=== PATIENT | male | born 1985 | race Caucasian/White ===

== ENCOUNTER 2021-08-20 07:50 | Emergency (ER) | payer BC, OTHER, SELFPAY ==
[2021-08-20 08:12] VITALS: BP 138/78; PULSE 63; RESP 18; TEMP 36.9; O2SAT 97
--- NOTE | 2021-08-20 08:18 | ECG_ITS ---
[facility] Test Date: 2021-08-20 Pat Name: Tahir Celaya Department: Room: Gender: Male Esl Tutor: : 1985 Requested By: Hemanth Richardson Order Number: [id number] Allie MD: Krystyna Gonzalez M.D. 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 [id number]
--- NOTE | 2021-08-20 08:18 | W.ED.COVID ---
Documented by User: SERG Quick 08/20/21 14:49 HPI - COVID General: Chief Complaint: COVID symptoms Stated Complaint: COVID + MUSCLE ACHES CHEST TIGHTNESS Time Seen by Provider: 08/20/21 08:12 Triage information: No fever, cough or shortness of breath. No known COVID + exposure last 14 days History of Present Illness: HPI Narrative: Patient presents today with Covid symptoms that started this morning. Patient is unvaccinated and is having some chest pressure when taken deep inspiration body aches fever chills, headache. Denies sore throat. Denies shortness of breath. MD complaint: known COVID positive Prior covid testing: yes, results known Prior testing date: 08/20/21 COVID 19 common symptoms: positive fever(s), chills, non-productive cough, body aches, headache(s), loss of sense of smell and/or taste and chest tightness; negative throat pain, nasal congestion, nausea or vomiting COVID 19 other sytmptoms: positive chest pressure; negative chest pain Onset (ago): hour(s) Severity: mild Treatment prior to arrival: none COVID Results: No Data to Display Review of Systems Const: Reports: fever(s), chills and body aches Eyes: Denies: change in vision or blurry vision ENMT: Denies: throat pain or nasal congestion Card: Denies: chest pain or dyspnea on exertion Resp: Reports: non-productive cough GI: Denies: abdominal pain, nausea or vomiting : Denies: difficulty urinating Musc: Denies: extremity pain Skin/Breast: Denies: rash Neuro: Reports: headache(s) Psych: Denies: anxiety or depression Mauricio/Lymph: Denies: easy bruising Physical Exam Const: COMMON NORMALS: no acute distress, average body habitus and patient oriented x3 HENMT: COMMON NORMALS: normocephalic HEAD & SCALP: normal to inspection and normocephalic FACE & SINUS: normal facial exam Eye: COMMON NORMALS: conjunctivae normal GENERAL EYE: appearance normal, both eyes and all related structures CONJUNCTIVA: Yes conjunctivae normal Neck/C-Spine: COMMON NORMALS: no JVD Chest: COMMONS NORMALS: normal inspection of the chest Resp: COMMON NORMALS: normal respiratory effort and clear to auscultation bilaterally AUSCULTATION: clear to auscultation bilaterally Cardio: COMMON NORMALS: no JVD, regular rate and regular rhythm RATE: regular rate RHYTHM: regular rhythm GI: COMMON NORMALS: Normal to inspection, nondistended, normoactive bowel sounds present Extremity: COMMON NORMALS: normal to inspection and full ROM Neuro: COMMON NORMALS: patient oriented x3 Course Vital Signs: Vital signs: Vital Signs Temperature 98.4 F 08/20/21 08:12 Pulse Rate 63 08/20/21 08:12 Respiratory Rate 18 08/20/21 08:12 Blood Pressure 138/78 08/20/21 08:12 Pulse Oximetry 95 08/20/21 09:35 MDM - COVID MDM Narrative: Medical decision making narrative: EKG reviewed by Dr. Cobian. Patient is in no distress. Tested positive for Covid this morning and his symptoms started this morning. Patient has no chest pain does have tightness with deep inspiration. Patient has no shortness of breath. COVID Results: No Data to Display Discharge Plan Discharge Patient Disposition: Home Clinical Impression: COVID-19 Condition: Stable Prescriptions: New Decadron 6 mg tablet 6 mg PO DAILY Qty: 7 RF: 0 Discharge Orders: Discharge ED (Routine); Ordered 08/20/21 Ordered By: Hemanth Richardson Discharge Diet: Usual diet Discharge Activity: Increase activity as tolerated Patient Instructions: COVID-19 (Coronavirus Disease 2019) (ED) Activity Restrictions/Additional Instructions: Follow-up with medical provider as directed. Take medications as prescribed. Return to the ER or your medical provider if condition worsens. Please read and understand discharge instructions. If any questions ask please. Contact [facility] Covid hotline if you want to schedule yourself for monoclonal antibody infusion. Coding Level of Care Code ED Disability Attorney for Chg Fwd Exam Comprehensive Documented by User: Jose Juan Singh DO 08/22/21 07:50 HPI - COVID General: Chief Complaint: COVID symptoms Stated Complaint: COVID + MUSCLE ACHES CHEST TIGHTNESS Time Seen by Provider: 08/20/21 08:12 COVID Results: No Data to Display Course Vital Signs: Vital signs: Vital Signs Temperature 98.4 F 08/20/21 08:12 Pulse Rate 63 08/20/21 08:12 Respiratory Rate 18 08/20/21 08:12 Blood Pressure 138/78 08/20/21 08:12 Pulse Oximetry 95 08/20/21 09:35 MDM - COVID MDM Narrative: Medical decision making narrative: Chart reviewed and patient discussed with midlevel. Agree with assessment and plan. COVID Results: No Data to Display Discharge Plan Discharge Patient Disposition: Home Clinical Impression: COVID-19 Condition: Stable Prescriptions: New Decadron 6 mg tablet 6 mg PO DAILY Qty: 7 RF: 0 Discharge Orders: Discharge ED (Routine); Ordered 08/20/21 Ordered By: Hemanth Richardson Discharge Diet: Usual diet Discharge Activity: Increase activity as tolerated Patient Instructions: COVID-19 (Coronavirus Disease 2019) (ED) Activity Restrictions/Additional Instructions: Follow-up with medical provider as directed. Take medications as prescribed. Return to the ER or your medical provider if condition worsens. Please read and understand discharge instructions. If any questions ask please. Contact [employer] Covid hotline if you want to schedule yourself for monoclonal antibody infusion. Coding Level of Care Code ED Disability Attorney for Pushpa Fwd Exam Comprehensive
[2021-08-20 09:35] VITALS: O2SAT 95
== END 2021-08-20 08:40 | disposition home or self-care (01) ==
PROVIDERS: Emergency Provider Nurse Practitioner Family
DX: U07.1 COVID-19 (principal)
CPT/HCPCS: 93005; 99282

== ENCOUNTER → 2023-10-04 11:46 | Outpatient (BNVA) | payer OTHER, SELFPAY | PROVIDERS: Visit Provider Emergency Medicine | DX: J02.9 Acute pharyngitis, unspecified (principal); Z20.828 Contact with and (suspected) exposure to other viral communicable diseases | CPT/HCPCS: 87071; 87400; 87880 ==

== ENCOUNTER 2025-01-30 07:42 | Outpatient (CLI) | payer OTHER, SELFPAY ==
--- NOTE | 2025-01-30 07:57 | XRR_ITS ---
PROCEDURE INFORMATION: Exam: XR Left Ribs with PA Chest Exam date and time: 01/30/2025 8:15 AM Age: 39 years old Clinical indication: Injury or trauma; Fall; Rib area, left side; Blunt trauma; Additional info: Left shoulder and upper to mid left rib pain, patient fell TECHNIQUE: Imaging protocol: Radiologic exam of the left ribs with PA chest. Views: 3 views COMPARISON: CR XR shoulder LT min 2V* [id number] 01/30/2025 8:15 AM FINDINGS: Lungs: No focal infiltrates seen of the lungs. Pleural spaces: No large or obvious pneumothorax nor pleural effusion seen. Heart/Mediastinum: Heart size appears within normal. No obvious pneumomediastinum seen. Diaphragm: Mild elevation right hemidiaphragm. Bones/joints: No displaced fracture seen of visualized portions of left ribs. Soft tissues: No subcutaneous emphysema seen along left chest wall. Intraperitoneal space: No free intraperitoneal air seen beneath the diaphragm. XR/XR ribs LT mn 3V w CXR1V [id number] IMPRESSION: No displaced fracture seen of visualized portions of left ribs.
--- NOTE | 2025-01-30 07:57 | XRR_ITS ---
PROCEDURE INFORMATION: Exam: XR Left Shoulder Exam date and time: 01/30/2025 8:15 AM Age: 39 years old Clinical indication: Injury or trauma; Fall; Blunt trauma (contusions or hematomas); Shoulder; Left; Additional info: Left shoulder and upper to mid left rib pain x TECHNIQUE: Imaging protocol: Radiologic exam of the left shoulder. Views: 2 or more views. COMPARISON: CR XR ribs LT mn 3V w CXR1V [id number] 01/30/2025 8:15 AM FINDINGS: Bones/joints: No displaced fracture nor dislocation seen. Soft tissues: No metallic foreign body seen. XR/XR shoulder LT min 2V* [id number] IMPRESSION: No displaced fracture seen.
== END 2025-01-30 07:43 | disposition home or self-care (01) ==
PROVIDERS: Visit Provider Family Medicine Adult Medicine
DX: S46.912A Strain of unspecified muscle, fascia and tendon at shoulder and upper arm level, left arm, initial encounter (principal); V89.2XXA Person injured in unspecified motor-vehicle accident, traffic, initial encounter; R07.81 Pleurodynia
CPT/HCPCS: 71101; 73030

== ENCOUNTER 2025-05-01 07:52 | Emergency (ER) | payer OTHER, SELFPAY ==
[2025-05-01 07:57] VITALS: BP 155/79; PULSE 70; RESP 24; TEMP 36.6; O2SAT 99; BMI 27.0
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
[2025-05-01 08:22] LABS: Hematocrit 47.8 % (37-53); Hemoglobin 16.40 g/dL (11.27-16.99); Mean Corpuscular HGB Conc 34.3 g/dL (30-55); Mean Corpuscular Hemoglobin 31.5 pg (27-33); Mean Corpuscular Volume 91.7 fl (82-101); Nucleated Red Blood Cells % 0 %; Platelet Count 263 10^3/cmm (157-399); Red Blood Count 5.21 10^6/uL (3.85-5.65); White Blood Count 7.89 10^3/uL (3.29-11.43)
[2025-05-01 08:31] LABS: Alanine Aminotransferase 24 U/L (0-41); Albumin Level 4.6 g/dL (3.5-5.2); Alkaline Phosphatase 87 U/L (40-130); Anion Gap 21.3 (5-19); Aspartate Amino Transferase 27 U/L (0-40); Blood Urea Nitrogen 12 mg/dL (6-20); Calcium 9.7 mg/dL (8.5-10.5); Carbon Dioxide 21 mmol/L (22-29); Chloride 103 mmol/L (98-107); Creatinine Clr Calc Pharmacy 94.4474; Globulin 2.8 g/dL (1.3-4.6); Glucose 136 mg/dL (65-115); Lipase 29 U/L (13-60); Osmolality Calculated 294 mOsm/kg (285-295); Potassium 4.3 mmol/L (3.5-5.1); Sodium 141 mmol/L (136-145); Total Protein 7.4 g/dL (6.6-8.7)
--- NOTE | 2025-05-01 09:01 | CT_ITS ---
WS: [id number] CT ABDOMEN AND PELVIS NONCONTRAST HISTORY: flank pain TECHNIQUE: Imaging performed through the abdomen and pelvis. Coronal and sagittal reformats are submitted. All CT scans at [facility] use at least one of these dose optimization techniques: automated exposure control; mA and/or kV adjustment per patient size (includes targeted exams where dose is matched to clinical indication); or iterative reconstruction. DLP: 526.41 mGy.cm COMPARISON: None available. Lower thorax: Motion artifact at the lung bases. There is significant breathing motion artifact. Liver: Normal size liver. No mass or bile duct dilatation. Gallbladder: Normal gallbladder. No pericholecystic fluid or cholelithiasis. No gallbladder wall thickening. Pancreas: Normal size and attenuation. Normal pancreatic duct. No pancreatitis or mass. Spleen: Normal. Adrenal glands: Normal. No mass. Right kidney: Normal size kidney with a nonobstructing 3 mm calcification lower pole. 4 mm calcification in the distal RIGHT ureter. Majority of the ureter is normal caliber with minimal dilatation distally. Left kidney: Normal size kidney. Nonobstructing 2 mm calcification in the lower pole. No renal obstruction or perinephric stranding. Small caliber ureter. Aorta: Mild atherosclerosis abdominal aorta with no aneurysm. No free fluid, intraperitoneal air or significant lymphadenopathy. GI tract: No obstruction. Retrocecal appendix. Normal appendix. No colitis. Abdominal wall: Negative. No hernia. Pelvis: No free fluid. Minimally distended urinary bladder. Osseous structures: Sclerotic foci LEFT acetabulum and the LEFT ischium. Consistent with bone islands. CT/CT kidney stone [id number] IMPRESSION: 1. Minimally obstructing distal 4 mm RIGHT ureteral calcification. 2. No hydronephrosis. 3. Nonobstructing tiny bilateral renal calcifications. 4. No perinephric stranding. 5. Normal appendix.
[2025-05-01 09:02] LABS: Glucose Urine UA Negative (Normal); Nitrate Urine Negative (Negative); Specific Gravity, Urine 1.022 (1.005-1.030)
[2025-05-01 09:07] LABS: Add Urine Microscopic? YES
[2025-05-01 09:30] VITALS: BP 107/60; PULSE 55; O2SAT 95
[2025-05-01 11:39] VITALS: BP 128/80; PULSE 72; O2SAT 98
--- NOTE | 2025-05-05 04:58 | DCPLANNER ---
Referral for urology sent to [facility]
== END 2025-05-01 11:40 | disposition home or self-care (01) ==
PROVIDERS: Emergency Provider Family Medicine
DX: N20.0 Calculus of kidney (principal)
CPT/HCPCS: 74176; 80053; 81001; 83690; 85025; 87086; 99284

== ENCOUNTER 2025-05-14 10:30 | Emergency (ER) | payer OTHER, SELFPAY ==
[2025-05-14] VITALS (7 sets, daily range): BP systolic 109–142; BP diastolic 69–97; PULSE 68–90; RESP 18; TEMP 36.4; O2SAT 95–99
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
--- NOTE | 2025-05-14 11:09 | CTR_ITS ---
PROCEDURE INFORMATION: Exam: CT Abdomen And Pelvis Without Contrast Exam date and time: 05/14/2025 11:25 AM Age: 39 years old Clinical indication: Abdominal pain; Flank; Right; Additional info: R sided low back/groin pain; HX of stone TECHNIQUE: Imaging protocol: Computed tomography of the abdomen and pelvis without contrast. Axial, coronal and sagittal reformatted images were created and reviewed. Radiation optimization: All CT scans at this facility use at least one of these dose optimization techniques: automated exposure control; mA and/or kV adjustment per patient size (includes targeted exams where dose is matched to clinical indication); or iterative reconstruction. COMPARISON: CT kidney stone [id number] 05/01/2025 9:07 AM RADIATION DOSE METRICS: Total DLP (mGy-cm): 567.28 FINDINGS: Liver: 4 mm low-density lesion in the right hepatic lobe, too small to characterize. Gallbladder and biliary ducts: No radiodense gallstones. No biliary ductal dilatation. Pancreas: Unremarkable. Spleen: Unremarkable. Adrenal glands: Normal. No mass. Kidneys and ureters: Mild right-sided hydroureteronephrosis and perinephric/periureteral edema, secondary to a 4 mm distal right ureteral calculus (axial image 191 and coronal image 52). Nonobstructing bilateral renal calculi. Stomach and bowel: No bowel wall thickening. No obstruction. No pneumatosis. Appendix: Normal. Intraperitoneal space: No free fluid. No organized fluid collection. No free air. Vasculature: Minimal atherosclerotic disease. No aneurysm. Lymph nodes: No pathologically enlarged lymph nodes. Urinary bladder: Mild circumferential urinary bladder wall thickening, likely secondary to underdistention. Reproductive: Unremarkable. Bones/joints: No acute osseous abnormality. Mild degenerative changes. Soft tissues: Unremarkable. CT/CT kidney stone [id number] IMPRESSION: 1. Mild right-sided hydroureteronephrosis and perinephric/periureteral edema, secondary to a 4 mm distal right ureteral calculus. 2. Additional findings, as above.
[2025-05-14 11:14] LABS: Hematocrit 46.5 % (37-53); Hemoglobin 16.30 g/dL (11.27-16.99); Mean Corpuscular HGB Conc 35.1 g/dL (30-55); Mean Corpuscular Hemoglobin 32.0 pg (27-33); Mean Corpuscular Volume 91.2 fl (82-101); Nucleated Red Blood Cells % 0 %; Platelet Count 265 10^3/cmm (157-399); Red Blood Count 5.10 10^6/uL (3.85-5.65); White Blood Count 8.20 10^3/uL (3.29-11.43)
[2025-05-14] MEDS: HYDROmorphone 0.5 MG/0.5 ML INJ 1 MG IVP (11:17)
[2025-05-14] MEDS: ondansetron 2 mg/ML SDV 2 mL 4 MG IVP (11:17)
[2025-05-14 11:32] LABS: Alanine Aminotransferase 27 U/L (0-41); Albumin Level 4.6 g/dL (3.5-5.2); Alkaline Phosphatase 100 U/L (40-130); Anion Gap 20.8 (5-19); Aspartate Amino Transferase 28 U/L (0-40); Blood Urea Nitrogen 9 mg/dL (6-20); Calcium 9.3 mg/dL (8.5-10.5); Carbon Dioxide 21 mmol/L (22-29); Chloride 103 mmol/L (98-107); Creatinine Clr Calc Pharmacy 101.8362; Globulin 3.1 g/dL (1.3-4.6); Glucose 106 mg/dL (65-115); Osmolality Calculated 291 mOsm/kg (285-295); Potassium 3.8 mmol/L (3.5-5.1); Sodium 141 mmol/L (136-145); Total Protein 7.7 g/dL (6.6-8.7)
[2025-05-14] MEDS: fentaNYL 50 mcg/mL INJ 2mL IVP (11:56)
[2025-05-14] MEDS: methylPREDNISolone sod succ 125 mg/2 mL INJ IVP (12:50)
[2025-05-14] MEDS: diphenhydrAMINE 50 mg/mL SDV 1mL IVP (12:50)
[2025-05-14 14:32] LABS: Glucose Urine UA Negative (Normal); Nitrate Urine Negative (Negative); Specific Gravity, Urine 1.025 (1.005-1.030)
[2025-05-14 14:38] LABS: Add Urine Microscopic? YES
== END 2025-05-14 14:06 | disposition home or self-care (01) ==
PROVIDERS: Emergency Provider Physician Assistant
DX: N20.1 Calculus of ureter (principal); Z87.442 Personal history of urinary calculi; Z72.0 Tobacco use
CPT/HCPCS: 74176; 80053; 81001; 85025; 87086; 96374; 96375; 99285; J1171; J1200; J1885; J2405; J2919; J3010; J7030